=== PATIENT | female | born 1970 | race Hispanic/Latino ===

== ENCOUNTER 2016-04-09 17:48 | Observation (INO) | payer OTHER ==
[~2016-04-09] VITALS: Ht 165.1 cm; Wt 89.9 kg
[~2016-04-09 17:48] MED LIST: CHOL100043 PO; DICY10CA13 PO; HSC.125T PO; LEVO75TA4 PO
[2016-04-09 18:05] VITALS: BP 106/65; PULSE 72; RESP 17; O2SAT 99
--- NOTE | 2016-04-09 18:05 | ED.REPORT ---
HPI-Chest Pain 40 and Over Date of Service Apr 09, 2016 ED Provider: Jeffery Giraldo MD History of Present Illness: Sent from urgent care A 45 year old female with no history of cardiac disease, hypertension, high cholesterol, or diabetes is referred to the ED from Urgent Care due to midsternal chest pain and a concerning EKG. The pt presented to Urgent Care with chest pain ranging from 1/10 to 5/10 that radiated to her shoulder and neck. The chest pain began while the pt was at work at 08:00 this morning and has been intermittent since. She returned home, but became concerned when the pain began continuously radiating into her left arm and neck. She also began experiencing shortness of breath, nausea, and diaphoresis. The pain is worsened by deep breathing and movement of her arm, and relieved by laying on her side. In the ED, the pt is complaining of a headache and nausea. Nitro relieved her chest pain somewhat. She denies fever, cough, or the occurrence of any symptoms before today. Nursing Notes Stated Complaint: CHEST PAIN Nursing Notes Reviewed: Yes ([facility] not reconciled) Allergies: Coded Allergies: No Known Drug Allergies (Verified Allergy, Unknown, 04/09/16) Scheduled Cholecalciferol (Vitamin D3) (Vitamin D) 1,000 Unit Tablet 1,000 UNIT PO DAILY Hyoscyamine Sulfate (Levsin) 0.125 Mg Tab 0.125 MG PO QID Levothyroxine (Levothyroxine) 75 Mcg Tablet 75 MCG PO DAILY Scheduled PRN Dicyclomine (Dicyclomine) 10 Mg Capsule 10 MG PO QID PRN PRN For GI Cramps General Time Seen by MD: 18:03 Chief Complaint Chest pain Hx Obtained From: Patient, EMS Arrived By: Ambulance Sudden in Onset?: Yes Onset Occurred: 9 - 12 hours ago Symptom Duration: Intermittent Recent Healthcare: No recent doctor visit, No recent hospitalization Similar Sx Previous: No Past Medical History Past Medical History thyroid disease Denies: Congestive heart failure, Coronary artery disease, Diabetes mellitus, Hyperlipidemia, Hypertension, Transient ischemic attack Reports: Thyroid disease Past Surgical History R hand surgery L ear surgery Reports: Cholecystectomy Smoking History Never Smoker Social History Other Social History: Good social support Ambulatory Status Independent Review of Systems Constitutional: Denies: Chills, Fever Respiratory: Reports: Pleuritic pain, Shortness of breath, Denies: Non-productive cough Cardiovascular: Reports: Chest pain (midsternal) GI: Reports: Nausea, Denies: Abdominal pain, Vomiting Musculoskeletal: Reports: Extremity pain, Neck pain, Denies: Back pain Skin: Reports Diaphoresis, Denies Rash Neurologic: Reports: Headache Complete sys rev & neg: except as marked. Physical Exam Initial Vital Signs Vital Signs (First) Date Time Temp Pulse Resp B/P Pulse Ox O2 Delivery O2 Flow Rate FiO2 04/09/16 18:05 72 17 106/65 99 Room Air Initial VS: Reviewed, Unavailable (none on chart, ordered) General/Constitutional: Awake, Alert Respiratory / Chest: Atraumatic, Breath sounds NL, Breath sounds = bilat, No respiratory distress Cardiovascular: Heart rate NL, Regular rhythm, Heart sounds NL Abdomen: Atraumatic, Soft, Non-tender Neck: Atraumatic, Supple, Full range of motion Back: Atraumatic, Full range of motion Lower Extremity / Pelvis / MS: Atraumatic, Full range of motion Skin: Atraumatic, Color NL, No rash, Warm, Dry Neurologic: Oriented X3, Speech NL, No motor deficits, No sensory deficits Psychiatric: Affect NL, Mood NL Head / Eyes: Atraumatic, Normocephalic, PERRL, EOMI ENT: Atraumatic, Airway patent, Mucous membranes moist Upper Extremity / MS: Atraumatic, Full range of motion Interpretation & Diagnostics Lab Results Interpretation Result Diagram: 04/09/16180604/09/161806 Test 04/09/16 18:07 White Blood Count 9.3th/mm3 (3.8-10.1) Red Blood Count 4.47mil/mm3 (3.90-5.20) Hemoglobin 13.7g/dL (12.0-15.6) Hematocrit 40.0% (35.0-46.0) Mean Corpuscular Volume 89.5fL (81-100) Mean Corpuscular Hemoglobin 30.6pg (27.0-35.0) Mean Corpuscular Hemoglobin Concent 34.3% (32.0-37.0) Red Cell Distribution Width 11.8% (12.3-15.4) Platelet Count 315bil/L (150-400) Neutrophils (%) (Auto) 67.3% (40-74) Lymphocytes (%) (Auto) 24.9% (14-46) Monocytes (%) (Auto) 6.5% (4-12) Eosinophils (%) (Auto) 1.1% (0-5) Basophils (%) (Auto) 0.1% (0-3) D-Dimer < 0.5mg/L (<0.50) Sodium Level 140mEq/L (134-144) Potassium Level 3.7mEq/L (3.5-5.2) Chloride Level 102mEq/L (97-108) Carbon Dioxide Level 26mmol/L (18-29) Blood Urea Nitrogen 17mg/dL (6-24) Creatinine 0.45mg/dL (0.57-1.00) Estimat Glomerular Filtration Rate 215mL/min (>59) Glucose Level 98mg/dL (60-99) Calcium Level 9.1mg/dL (8.5-10.1) Magnesium Level 2.1mg/dL (1.6-2.6) Total Bilirubin 0.5mg/dL (0.0-1.2) Aspartate Amino Transf (AST/SGOT) 16U/L (0-50) Alanine Aminotransferase (ALT/SGPT) 13U/L (0-32) Alkaline Phosphatase 54U/L (25-150) Troponin T < 0.010ug/L (0.0-0.011) Total Protein 7.4g/dL (6.4-8.4) Albumin 4.3g/dL (3.4-5.0) Lab Results Interpretation: CBC normal CMP normal troponin #1 negative D-dimer negative ECG Interpretation ECG Interpretation: normal sinus rhythm with a rate of 76 left axis deviation nonspecific T wave inversion anteriorly, no prior EKG available for comparison (Other than comparison with EKG earlier today at urgent care - for which there is no interval change) Time: 18:07 Interpreted by: ED physician X-Ray Chest Interpretation Chest Xray Interpretation: IMPRESSION: No acute cardiopulmonary disease. Dictated by: Justino Del Angel M.D. on 04/09/2016 at 18:23 Approved by: Justino Del Angel M.D. on 04/09/2016 at 18:23 Interpretation / Wet Read by: Interpret - Radiologist Re-Eval/Medical Decision Med Decision/Clinical Course This is a 45-year-old female sent over from urgent care with chest discomfort. This is a patient without prior cardiopulmonary history he developed left-sided chest discomfort radiating the shoulder and neck has been waxing and waning throughout the day and associated diaphoresis, shortness of breath and some mild nausea. There is a trace pleuritic component. Patient's been otherwise healthy. She has no clear-cut risk factors for either coronary disease or thromboembolic disease. Her vitals are normal. However EKG demonstrated T wave abnormality is anteriorly, and she has no prior EKG available for comparison. She received aspirin and nitroglycerin. The nitroglycerin gave her a headache, but resolved the chest discomfort. EKG in the emergency department confirms the T wave abnormalities, initial blood work including a d-dimer and initial troponin is negative. However with the patient having abnormal EKG with anterior T-wave inversions, components of the story that are potentially concerning, although there are components that are atypical as well, serial enzymes are warranted an observation admission to evaluate for tachycardia syndrome is indicated. Patient is updated. Case is discussed the hospitalist Source of Hx: Old records, EMS Time of Eval: 20:22 Patient Status: Condition unchanged Re-Evaluation/Progress Note: Pt rechecked, who is resting. She is informed of her radiology and lab results, as well as the need for admission. The pt understands and agrees with the plan. All questions are addressed at this time. 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 Bender, hospitalist, regarding pt's case. Dr. Bender agrees with the evaluation and agrees to admit the pt. Differential Diagnosis: Positive: Chest pain, acute, Negative: Congestive heart failure, Esophageal rupture, Esophagitis, Gun shot wound chest, Hypertroph cardiomyopathy, Pneumomediastinum, Pneumonia, Pneumothorax, Pulmonary edema, Pulmonary embolism, Rib fracture, Stab wound chest, Stable angina Counseled Regarding: Diagnosis, Lab results, Need for admission Discharge & Departure Primary Impression: Chest pain Chest pain type: unspecified Qualified Code: R07.9 - Chest pain, unspecified Additional Impression: Abnormal EKG Referrals: Raquel Collier MD (PCP) Jeffery Giraldo MD Apr 09, 2016 18:05 EZEQUIEL BLANCHARD Apr 09, 2016 18:37
[2016-04-09 18:11] LABS: BASOPHILS % (AUTO) 0.1 % (0-3); EOSINOPHILS % (AUTO) 1.1 % (0-5); MONOCYTES % (AUTO) 6.5 % (4-12); Mean Corpuscular Hemoglobin 30.6 pg (27.0-35.0); Mean Corpuscular Volume 89.5 fL (81-100); NEUTROPHILS % (AUTO) 67.3 % (40-74); Platelet Count 315 bil/L (150-400)
--- NOTE | 2016-04-09 18:26 | DRSVH ---
PROCEDURE: X-RAY CHEST ONE VIEW, PORTABLE ([id number]) INDICATIONS: 45 year-old female with chest pain. TECHNIQUE: One view of the chest was acquired. COMPARISON: None. FINDINGS: Surgical changes and devices: None. Lungs and pleura: No pleural effusions or pneumothorax. Lungs are clear. Mediastinum: Mediastinal contours appear normal. Heart size is normal. Bones and chest wall: No suspicious bony lesions. Overlying soft tissues appear unremarkable. IMPRESSION: No acute cardiopulmonary disease. Dictated by: Justino Del Angel M.D. on 04/09/2016 at 18:23 Approved by: Justino Del Angel M.D. on 04/09/2016 at 18:23
[2016-04-09 18:43] LABS: Magnesium 2.1 mg/dL (1.6-2.6)
[2016-04-09 18:46] VITALS: BP 103/51; PULSE 70; RESP 16; O2SAT 100
[2016-04-09 18:56] LABS: TROPONIN T < 0.010 ug/L (0.0-0.011)
[2016-04-09] MEDS ORDERED: Ondansetron 2 mg/mL 2 mL Inj IVPUSH PRN ×2 (21:15→21:30)
[2016-04-09] MEDS ORDERED: Alum-Mag Hydrox-Simeth 30 mL Suspension PO PRN ×2 (21:15→21:30)
[2016-04-09] MEDS ORDERED: Polyethylene Glycol (PEG) 17 Gm Powder PO PRN (21:30)
[2016-04-09 21:46] VITALS: BP 112/68; PULSE 72; RESP 20; O2SAT 100
[2016-04-09 22:35] LABS: APPEARANCE,URINE CLEAR (CLEAR,HAZY); COLOR,URINE STRAW (YELLOW); OCCULT BLOOD,URINE NEGATIVE (NEGATIVE); UROBILINOGEN,URINE NORMAL (NORMAL)
[2016-04-09 23:21] VITALS: BP 112/70; PULSE 72; RESP 18; O2SAT 98
--- NOTE | 2016-04-09 23:33 | PCM.HPMED ---
Subjective Date of Service Apr 09, 2016 Primary Provider: Admitting Physician: Ruth Bender MD Primary Care Physician: Karli Thakkar Attending Physician: Ruth Bender MD Admit Status: From the Emergency Department, 23-Hour Observation, [facility] Telemetry Chief Complaint: Chest pain History of Present Illness: This is a 45-year-old female who has no history of heart disease who presents with over the past day pain in the left side of her chest with radiation up to her shoulder and down her left arm. She notes it may last for 30 minutes at a time. Not worse with movement. She does have some nausea diaphoresis and shortness of breath with it. She was given nitroglycerin and did seem to help with the discomfort. Currently she is pain free. She has no family history of heart disease. Her evaluation here included an EKG showed normal sinus rhythm at a rate of 76 with left axis deviation. She did have some nonspecific T-wave changes in the anterior leads. Chest x-ray revealed no acute cardiopulmonary disease. Her troponin was less than 0.010. She did have a d-dimer which was less than 0.5. She denies any alteration in bowel movements and denies any abdominal pain. She denies any vomiting. She denies any fevers or chills. She denies cough or wheezing. Review of Systems: All other review of systems are reviewed and are negative except for as in history of present illness. Allergies Coded Allergies: No Known Drug Allergies (Verified Allergy, Unknown, 04/09/16) Home Medications Scheduled Cholecalciferol (Vitamin D3) (Vitamin D) 1,000 Unit Tablet 1,000 UNIT PO DAILY Hyoscyamine Sulfate (Levsin) 0.125 Mg Tab 0.125 MG PO QID Levothyroxine (Levothyroxine) 75 Mcg Tablet 75 MCG PO DAILY Scheduled PRN Dicyclomine (Dicyclomine) 10 Mg Capsule 10 MG PO QID PRN PRN For GI Cramps PMH Hypothyroidism History of irritable bowel syndrome Surgical History R hand surgery L ear surgery Reports: Cholecystectomy Family History No history of cardiovascular disease or diabetes Social History Hx Alcohol Use: No Hx Substance Use: No Smoking Status: Never Smoker Living Arrangement: with Family Exam Vital Signs Vital Sign - Last Date Time Temp Pulse Resp B/P Pulse Ox O2 Delivery O2 Flow Rate FiO2 04/09/16 21:46 36.2 72 20 112/68 100 04/09/16 18:46 Room Air Exam Constitutional: Middle-aged woman in no acute distress Head: Normocephalic atraumatic Eyes: PERRLA DC EOMI Mouth: No lesions Neck: Carotids 2+ over 4 without bruits bilaterally Chest: Clear to auscultation, no tenderness palpation over the chest wall Cor: Regular rate and rhythm S1-S2 without murmur Abdomen: Soft nontender bowel sounds present Extremities: No pedal edema Skin: No rashes Psych: Mood and affect are appropriate Neuro: Alert and oriented 3, motor and sensory are intact bilaterally Lab and Diagnostics Labs Laboratory Tests 72 Hours Test 04/09/16 18:07 04/09/16 21:59 04/09/16 22:35 White Blood Count 9.3th/mm3 (3.8-10.1) Red Blood Count 4.47mil/mm3 (3.90-5.20) Hemoglobin 13.7g/dL (12.0-15.6) Hematocrit 40.0% (35.0-46.0) Mean Corpuscular Volume 89.5fL (81-100) Mean Corpuscular Hemoglobin 30.6pg (27.0-35.0) Mean Corpuscular Hemoglobin Concent 34.3% (32.0-37.0) Red Cell Distribution Width 11.8% (12.3-15.4) Platelet Count 315bil/L (150-400) Neutrophils (%) (Auto) 67.3% (40-74) Lymphocytes (%) (Auto) 24.9% (14-46) Monocytes (%) (Auto) 6.5% (4-12) Eosinophils (%) (Auto) 1.1% (0-5) Basophils (%) (Auto) 0.1% (0-3) D-Dimer < 0.5mg/L (<0.50) Sodium Level 140mEq/L (134-144) Potassium Level 3.7mEq/L (3.5-5.2) Chloride Level 102mEq/L (97-108) Carbon Dioxide Level 26mmol/L (18-29) Blood Urea Nitrogen 17mg/dL (6-24) Creatinine 0.45mg/dL (0.57-1.00) Estimat Glomerular Filtration Rate 215mL/min (>59) Glucose Level 98mg/dL (60-99) Calcium Level 9.1mg/dL (8.5-10.1) Magnesium Level 2.1mg/dL (1.6-2.6) Total Bilirubin 0.5mg/dL (0.0-1.2) Aspartate Amino Transf (AST/SGOT) 16U/L (0-50) Alanine Aminotransferase (ALT/SGPT) 13U/L (0-32) Alkaline Phosphatase 54U/L (25-150) Troponin T < 0.010ug/L (0.0-0.011) 0.010ug/L (0.0-0.011) Total Protein 7.4g/dL (6.4-8.4) Albumin 4.3g/dL (3.4-5.0) HCG Beta Subunit 0.500mIU/mL Urine Color Straw (YELLOW) Urine Appearance Clear (CLEAR,HAZY) Urine pH 7.0 (5.0-8.0) Urine Specific [place] 1.010 (1.003-1.035) Urine Protein Negativemg/dL (NEG,TRACE) Urine Glucose (UA) Negativemg/dL (NEGATIVE) Urine Ketones Negativemg/dL (NEGATIVE) Urine Occult Blood Negative (NEGATIVE) Urine Nitrite Negative (NEGATIVE) Urine Bilirubin Negative (NEGATIVE) Urine Urobilinogen Normalmg/dL (NORMAL) Urine Leukocyte Esterase Negative (NEGATIVE) Urine RBC 0-2/hpf (0-2) Urine WBC 0-5/hpf (0-5) Urine Epithelial Cells Few/hpf (NONE-MOD) Urine Crystals None seen (NONE SEEN) Urine Bacteria None/hpf (NONE-FEW) Urine Hyaline Casts None/lpf (NONE) Urine Granular Casts None seen (NONE SEEN) Urine Waxy Casts None seen (NONE SEEN) Urine Red Blood Cell Casts None seen (NONE SEEN) Urine White Blood Cell Casts None seen (NONE SEEN) Urine Mucus None seen (None Seen) Urine Trichomonas None seen (NONE SEEN) Urine Yeast None (NONE SEEN) Urine Culture Reflexed Not indicated Result Diagram: 04/09/16180604/09/161806 X-Rays, CTs and MRIs Patient Name: ANATOLIY ANTON MR#: [id number] Location: [facility] [place] Ordering Phys: Jeffery Giraldo MD Date of Service: 04/09/16 1803 PROCEDURE: X-RAY CHEST ONE VIEW, PORTABLE ([id number]) INDICATIONS: 45 year-old female with chest pain. TECHNIQUE: One view of the chest was acquired. COMPARISON: None. FINDINGS: Surgical changes and devices: None. Lungs and pleura: No pleural effusions or pneumothorax. Lungs are clear. Mediastinum: Mediastinal contours appear normal. Heart size is normal. Bones and chest wall: No suspicious bony lesions. Overlying soft tissues appear unremarkable. IMPRESSION: No acute cardiopulmonary disease. Dictated by: Justino Del Angel M.D. on 04/09/2016 at 18:23 Approved by: Justino Del Angel M.D. on 04/09/2016 at 18:23 12-lead ECG Sinus at rate of 76 left axis deviation and T-wave nonspecific changes in V1 through V3 which are slightly inverted. No old EKG for comparison. Assessment & Plan # Chest pain, acute, present on admission Check serial troponins Schedule nuclear pharmacological stress test Sublingual nitroglycerin when necessary Repeat EKG in a.m. Check lipids # Hypothyroidism, chronic, present on admission Continue with current medication regimen # DVT prophylaxis Placed on subcutaneous heparin prophylactic # CODE STATUS Patient is full code Pain Evaluation: Adequate Pain Control GI Prophylaxis: H2 philip VTE Prophylaxis: Sub-Q Heparin (Unfractionated) Resuscitation Status: CPR: Attempt Resuscitation Time spent 60 minutes Ruth Bender MD Apr 09, 2016 23:32
[2016-04-10] VITALS (7 sets, daily range): BP systolic 87–122; BP diastolic 57–81; PULSE 68–119; RESP 16–18; O2SAT 98
[2016-04-10] MEDS ORDERED: ROB500 PO (00:29)
[2016-04-10] MEDS: Heparin 5,000 Unit/mL Inj SUBQ SCH ×4 (00:44→23:58)
[2016-04-10] MEDS: Sodium Chloride LOK Flush 10 mL Syringe IVFLUSH SCH ×3 (00:46→18:31)
--- NOTE | 2016-04-10 00:48 | NUR ---
ADMIT: Pt. arrived to [facility] from the ED via stretcher. States she started having chest pain and difficulty breathing this am at about 0800 while at work. Went to the walk in clinic, they did an EKG which turned out to be abnormal, they sent her to the ED and was admitted for that reason. Chest pain is resolved, denies SOB. On arrival to [facility] Pt. was able to ambulate from the stretcher to her bed without difficulty. Ambulated to the bathroom independently for voiding. Pt. is Monegasque speaking only. She is A & O, all vss. Admission completed per protocol.
[2016-04-10 11:29] LABS: BASOPHILS % (AUTO) 0.4 % (0-3); EOSINOPHILS % (AUTO) 1.3 % (0-5); Mean Corpuscular Hemoglobin 30.4 pg (27.0-35.0); Mean Corpuscular Volume 88.4 fL (81-100); NEUTROPHILS % (AUTO) 58.2 % (40-74); Platelet Count 278 bil/L (150-400)
[2016-04-10 11:59] LABS: Magnesium 2.1 mg/dL (1.6-2.6)
--- NOTE | 2016-04-10 18:33 | DRSVH ---
PROCEDURE: ONE DAY TREADMILL STRESS TEST INDICATIONS: Ms. Pichardo is a 45-year-old female presenting to [facility] with s ymptoms of chest discomfort and some nonspecific EKG changes. Nuclear cardiac stress study was perfo rmed to exclude underlying ischemic heart disease. COMPARISON: None. STRESS TEST: This patient was given a regular exercise Yung protocol treadmill stress test. She wa s able to achieve a total exercise time of 7 minutes and 39 seconds, stopping due to symptoms of dysp renetta and fatigue without chest pain or diagnostic EKG changes of ischemia. Baseline EKG is notable fo r some generalized low voltage throughout with nonspecific T-wave inversion and T-wave flattening dif fusely. PROCEDURE: This patient received 11.9 mCi of technetium-99 tetrofosmin for the resting portion of th e examination. She subsequently received 30.3 mCi for the stress portion of the examination at peak exercise. FINDINGS: Raw Data: Raw data images demonstrate overall good image quality. No significant artifact or interf erence identified. Quantitative Gated SPECT Imaging: Gated images show a normal-size ventricle with an end diastolic vo lume of 62 cc. Overall ejection fraction estimated at 80%. No regional wall motion abnormalities se en. Quantitative Perfusion SPECT Imaging: Myocardial perfusion imaging shows a normal distribution of ra dioisotope throughout the myocardium both at rest and with stress. No perfusion abnormalities are id entified that would suggest ischemia or scar. IMPRESSION: Normal nuclear cardiac stress study: A. Near-normal exercise capacity with symptoms of dyspnea but without chest pain or electrocardiogra phic changes of ischemia. B. Normal-size left ventricle and normal left ventricular contractility. C. Normal myocardial perfusion imaging with no evidence of ischemia or scar. DISCUSSION: Nuclear cardiac stress study suggests a low likelihood for the presence of significant u nderlying obstructive coronary artery disease. Dictated by: Yunier Segura M.D. on 04/10/2016 at 16:56 Transcribed by: KENDY on 04/10/2016 at 21:32 Approved by: Yunier Segura M.D. on 04/28/2016 at 12:17
--- NOTE | 2016-04-10 18:35 | NUR ---
STRESS TEST P-Patient underwent stress test today at 1200, results have not been given at this time. I- Extension Service Agent called and patient aware of situation and pending test results. E-Patient VSS, denies pain, nausea, and shortness of breath. Patient eating 100% of dinner.
--- NOTE | 2016-04-10 23:07 | PCM.PNMED ---
Subjective Date of Service Apr 10, 2016 Subjective Patient has no complaints of chest pain at present time. She has no nausea, no vomiting, or diaphoresis. Exam Vital Signs Vital Sign - Last Date Time Temp Pulse Resp B/P Pulse Ox O2 Delivery O2 Flow Rate FiO2 04/10/16 18:47 36.6 68 18 122/81 98 Room Air Intake and Output 04/09/16 04/09/16 04/10/16 Cumulative From/Thru 15:00 23:00 07:00 04/09/16 21:47 - 04/10/16 06:15 Intake Total 200 ml 200 ml Output Total 300 ml 350 ml 650 ml Balance -300 ml -150 ml -450 ml Intake Oral 200 ml 200 ml Output Urine Total 300 ml 350 ml 650 ml # Voids 1 1 # Bowel Movements 0 0 Exam General: Patient is in no apparent distress lying supine flat in bed. HEENT: Head is atraumatic normocephalic. Eyes: Pupils are equally round and reactive to light and accommodation. Extraocular muscles are intact. Sclera are white anicteric. Subconjunctival mucosa are pink. Ears and nose are unremarkable. Oropharynx: There is no mucosal lesions, there is no thrush, there is no pharyngitis. Neck: Is supple, there is no nodes, or masses, or tenderness. Chest: Is clear to auscultation and percussion. There are no rales, rhonchi, wheezes or rubs. There is no chest wall tenderness. Heart: Rate, rhythm is regular. There is no murmur, rub or gallop. Abdomen: Good bowel sounds are present. Abdomen is soft, nontender, no organomegaly or masses were appreciated. Extremities: Are symmetrical and well perfused. There is no edema, there is no cellulitis, no rash. Neurologic: There are no focal neurological deficits. Cranial nerves II through XII are intact. There are no sensory or motor deficits. Psychiatric: Patients mood is calm and shows no sign of agitation. Genital: Deferred Rectal: Deferred Lab and Diagnostics Result Diagram: 04/10/16 1120 04/10/16 1120 X-Rays, CTs and MRIs Patient Name: ANATOLIY ANTON MR#: [id number] Location: [facility] Ordering Phys: Jeffery Giraldo MD Date of Service: 04/09/16 5763 PROCEDURE: X-RAY CHEST ONE VIEW, PORTABLE ([id number]) INDICATIONS: 45 year-old female with chest pain. TECHNIQUE: One view of the chest was acquired. COMPARISON: None. FINDINGS: Surgical changes and devices: None. Lungs and pleura: No pleural effusions or pneumothorax. Lungs are clear. Mediastinum: Mediastinal contours appear normal. Heart size is normal. Bones and chest wall: No suspicious bony lesions. Overlying soft tissues appear unremarkable. IMPRESSION: No acute cardiopulmonary disease. Dictated by: Justino Del Angel M.D. on 04/09/2016 at 18:23 Approved by: Justino Del Angel M.D. on 04/09/2016 at 18:23 12-lead ECG Sinus at rate of 76 left axis deviation and T-wave nonspecific changes in V1 through V3 which are slightly inverted. No old EKG for comparison. Assessment & Plan This is a 45-year-old female who has no history of heart disease who presents with over the past day pain in the left side of her chest with radiation up to her shoulder and down her left arm. She notes it may last for 30 minutes at a time. Not worse with movement. She does have some nausea diaphoresis and shortness of breath with it. She was given nitroglycerin and did seem to help with the discomfort. Currently she is pain free. She has no family history of heart disease. Her evaluation here included an EKG showed normal sinus rhythm at a rate of 76 with left axis deviation. She did have some nonspecific T-wave changes in the anterior leads. Chest x-ray revealed no acute cardiopulmonary disease. Her troponin was less than 0.010. She did have a d-dimer which was less than 0.5. She denies any alteration in bowel movements and denies any abdominal pain. She denies any vomiting. She denies any fevers or chills. She denies cough or wheezing. # Chest pain, acute, present on admission -Check serial troponins -Schedule nuclear pharmacological stress test or exercise stress echo as patient is only 45 years old -Sublingual nitroglycerin when necessary -Repeat EKG in a.m. -Check lipids # Hypothyroidism, chronic, present on admission -Continue with current medication regimen # DVT prophylaxis -Placed on subcutaneous heparin prophylactic # CODE STATUS Patient is full code Pain Evaluation: Adequate Pain Control GI Prophylaxis: Proton Pump Inhibitor VTE Prophylaxis: Sub-Q Heparin (Unfractionated) Resuscitation Status: CPR: Attempt Resuscitation Shawn Gabriel MD Apr 10, 2016 23:07
[2016-04-11] MEDS: Sodium Chloride LOK Flush 10 mL Syringe IVFLUSH SCH ×2 (00:30→08:30)
--- NOTE | 2016-04-11 02:27 | NUR ---
Headache Patient states she has a headache. Tylenol given 650mg. Patient accidently removed her peripheral IV last shift. Physician notified. Physician recommended holding off starting new IV until there is a need. No IV fluids ordered at this time.
[2016-04-11 06:34] LABS: BASOPHILS % (AUTO) 0.2 % (0-3); EOSINOPHILS % (AUTO) 0.8 % (0-5); MONOCYTES % (AUTO) 7.7 % (4-12); Mean Corpuscular Hemoglobin 30.3 pg (27.0-35.0); Mean Corpuscular Volume 88.1 fL (81-100); NEUTROPHILS % (AUTO) 53.2 % (40-74); Platelet Count 293 bil/L (150-400)
[2016-04-11 07:21] LABS: Magnesium 2.1 mg/dL (1.6-2.6); Phosphorus 3.9 mg/dL (2.5-4.9); TROPONIN T 0.01 ug/L (0.0-0.011)
[2016-04-11] MEDS ORDERED: Pantoprazole 40 mg ER24 Tablet PO SCH (07:30)
[2016-04-11] MEDS: Heparin 5,000 Unit/mL Inj SUBQ SCH (08:30)
[2016-04-11 10:12] VITALS: PULSE 77
--- NOTE | 2016-04-11 10:21 | NUR ---
Social Work Screening/Discharge D: EMR reviewed. Pt is a 45Y old female Marika for Chest Pain and Abnormal EKG. Insurance is [employer]. PCP is Dr. Thakkar. Per EMR, Pt lives at home with Family in [place] where she remains independent. Pt is medically stable and discharging home today via POV, no discharge needs identified. A: Pt who is independent at baseline P: Pt is medically stable and discharging home today via POV, no discharge needs identified. DIANE Sky
--- NOTE | 2016-04-11 10:56 | NUR ---
I am recording these input/output numbers as handed to me by ELINA leblanc CNA dated 04/11/16 at 7:00 am Addendum: 04/11/16 at 1058 by RUBY ARCHER CNA Amended: Links added. Addendum: 04/11/16 at 1109 by RUBY ARCHER CNA and requested by my supply chain procurement manager
--- NOTE | 2016-04-11 11:45 | NUR ---
Discharge Pt DC home with via private vehicle. All cardiac tests including ECHO this morning were negative and results explained with silver miner blasting at bedside, all questions answered. Per Dr. Beauchamp, expected cause of chest pain was related to GERD and pt was educated by him with the silver miner blasting and RN witness on use of over the counter medications to help with this. Pt understands to follow up with PCP in 1-2 weeks and feels comfortable leaving at this time.
--- NOTE | 2016-04-11 12:16 | PCM.DIMED ---
Discharge Instructions Date of Service Apr 11, 2016 Dates of Hospitalization Apr 09, 2016 at 21:34 Discharge Diagnosis Discharge Diagnosis chest pain, nonanginal Diet No restrictions Activity No restrictions Call your provider Other Patient Instructions You were hospitalized with chest pain. Further work-ups including laboratory test, EKG, stress test indicated that you don't have evidence of heart attack. Instruction> please follow up with your primary doctor in 2weeks for follow up Follow-up Provider: NORA SANFORD Follow-up with PCP in: 2 weeks Benjamin Beauchamp MD Apr 11, 2016 12:16
--- NOTE | 2016-04-11 13:00 | DRSVH ---
[facility] [address] [place] [address] Echocardiogram Report Name: NAATOLIY ANTON Date: 017 Height: 65 in Hospital Exam Location: [facility] Weight: 198 lb Gender: Female BSA: 2.0 m2 : 1970 Age: 45 yrs BP: 122/81 mmHg Reason For Study: Chest pain Ordering Physician: Performed By: Lorie Anna Interpretation Summary The left ventricle is normal in size, wall thickness, and systolic function without any focal wall motion abnormalities. The ejection fraction is estimated to be 60-65%. Assessment of diastolic parameters indicates a relaxation abnormality of the left ventricle, consistent with normal filling pressures. The right ventricle is normal in size, thickness and function. The right ventricular systolic pressure is estimated at 26 mmHg assuming a right atrial pressure of 3 mm Hg. There is no significant valvular heart disease. The aortic root is normal size. Procedure: A two-dimensional transthoracic echocardiogram with color flow and Doppler was performed. The study quality was technically adequate. There is no prior echocardiogram noted for this patient. The patient was in normal sinus rhythm during the exam. Left Ventricle: The left ventricle is normal in size, wall thickness, and systolic function without any focal wall motion abnormalities. The ejection fraction is estimated to be 60-65%. Assessment of diastolic parameters indicates a relaxation abnormality of the left ventricle, consistent with normal filling pressures. Right Ventricle: The right ventricle is normal in size, thickness and function. Atria: The left atrial size is normal. Right atrial size is normal. The interatrial septum is intact with no evidence for an atrial septal defect. Mitral Valve: The mitral valve is normal in structure and function. There is trace mitral regurgitation. Aortic Valve: The aortic valve is trileaflet. The aortic valve opens well. No aortic regurgitation is present. Tricuspid Valve: The tricuspid valve is normal in structure and function. There is trace tricuspid regurgitation. The right ventricular systolic pressure is estimated at 26 mmHg assuming a right atrial pressure of 3 mm Hg. Pulmonic Valve: The pulmonic valve is normal in structure and function. There is no pulmonic valvular regurgitation. There is no significant valvular heart disease. Great Vessels: The aortic root is normal size. The dimensions of the ascending aorta are normal. The IVC is of normal diameter and collapses greater than 50% with a sniff. This suggests a low right atrial pressure of 3 mm Hg. Pericardium/ Pleura There is no pericardial effusion. There is no pleural effusion. MMode/2D Measurements & Calculations LVIDd: 4.2 cm LA dimension: 3.7 cm RA long axis Ao root diam: 3.0 cm LVIDs: 2.5 cm Aortic Jxn: 2.5 cm FS: 39.9 % LA A2 area: 18.8 cm RA area asc Aorta Diam IVSd: 0.91 cm LA A4 area: 17.8 cm LVPWd: 0.75 cm LA length (vol) : 14.9 cm Ao Arch Diam RA vol (Proximal trans.) LA vol: 54.5 ml : 34.4 ml LA vol index RA : 17.5 mm2 : 27.7 ml/m2 LV bone. diameter/BSALV sys. diameter/BSA (cm/m^2): 2.1 (cm/m^2): 1.3 Doppler Measurements & Calculations Ao V2 max MV E max rex MV E/A: 0.69 TR max rex : 139.7 cm/sec : 56.5 cm/sec Med Peak E' Rex : 239.2 cm/sec Ao max PG MV A max rex TR max PG : 7.8 mmHg : 82.1 cm/sec E/E' med: 6.7 : 22.9 mmHg Ao mean PG MV P1/2t: 56.1 msec Lat Peak E' Rex PA V2 max : 4.1 mmHg : 75.4 cm/sec E/E' lat: 6.2 PA mean PG : 1.2 mmHg MV dec time MV P1/2t max rex Ao V2 mean PA V2 mean : 0.28 sec : 93.6 cm/sec : 50.3 cm/sec Ao V2 VTI: 29.6 cm MVA(P1/2t): 3.9 cm2 Reading Physician:PM
--- NOTE | 2016-04-12 17:41 | PCM.DC.MED ---
Discharge Summary Date of Service Apr 11, 2016 Dates of Hospitalization Date of Hospital Admission Apr 09, 2016 at 21:34 Date of Discharge: Apr 11, 2016 Providers: Admitting Physician: Ruth Bender MD Primary Care Physician: Nora Thakkar Attending Physician: Ruth Bender MD Diagnosis at Time of Discharge Diagnosis at Time of Discharge chest pain, nonanginal hypothyroidism Procedures XRay, CTs & MRIs PROCEDURE: X-RAY CHEST ONE VIEW, PORTABLE ([id number]) INDICATIONS: 45 year-old female with chest pain. TECHNIQUE: One view of the chest was acquired. COMPARISON: None. FINDINGS: Surgical changes and devices: None. Lungs and pleura: No pleural effusions or pneumothorax. Lungs are clear. Mediastinum: Mediastinal contours appear normal. Heart size is normal. Bones and chest wall: No suspicious bony lesions. Overlying soft tissues appear unremarkable. IMPRESSION: No acute cardiopulmonary disease. Dictated by: Justino Del Angel M.D. on 04/09/2016 at 18:23 Approved by: Justino Del Angel M.D. on 04/09/2016 at 18:23 ECG 12 Lead Sinus at rate of 76 left axis deviation and T-wave nonspecific changes in V1 through V3 which are slightly inverted. No old EKG for comparison. Cardiac Echo Impression Echocardiogram Report Name: ANATOLIY ANTON Date: 017 Height: 65 in Hospital Exam Location: [facility] Weight: 198 lb Gender: Female BSA: 2.0 m2 : 1970 Age: 45 yrs BP: 122/81 mmHg Reason For Study: Chest pain Ordering Physician: Performed By: Lorie Anna Interpretation Summary The left ventricle is normal in size, wall thickness, and systolic function without any focal wall motion abnormalities. The ejection fraction is estimated to be 60-65%. Assessment of diastolic parameters indicates a relaxation abnormality of the left ventricle, consistent with normal filling pressures. The right ventricle is normal in size, thickness and function. The right ventricular systolic pressure is estimated at 26 mmHg assuming a right atrial pressure of 3 mm Hg. There is no significant valvular heart disease. The aortic root is normal size. Other Diagnostics PROCEDURE: ONE DAY TREADMILL STRESS TEST INDICATIONS: Ms. Anton is a 45-year-old female presenting to [facility] with symptoms of chest discomfort and some nonspecific EKG changes. Nuclear cardiac stress study was performed to exclude underlying ischemic heart disease. COMPARISON: None. STRESS TEST: This patient was given a regular exercise Yung protocol treadmill stress test. She was able to achieve a total exercise time of 7 minutes and 39 seconds, stopping due to symptoms of dyspnea and fatigue without chest pain or diagnostic EKG changes of ischemia. Baseline EKG is notable for some generalized low voltage throughout with nonspecific T-wave inversion and T- wave flattening diffusely. PROCEDURE: This patient received 11.9 mCi of technetium-99 tetrofosmin for the resting portion of the examination. She subsequently received 30.3 mCi for the stress portion of the examination at peak exercise. FINDINGS: Raw Data: Raw data images demonstrate overall good image quality. No significant artifact or interference identified. Quantitative Gated SPECT Imaging: Gated images show a normal-size ventricle with an end diastolic volume of 62 cc. Overall ejection fraction estimated at 80%. No regional wall motion abnormalities seen. Quantitative Perfusion SPECT Imaging: Myocardial perfusion imaging shows a normal distribution of radioisotope throughout the myocardium both at rest and with stress. No perfusion abnormalities are identified that would suggest ischemia or scar. IMPRESSION: Normal nuclear cardiac stress study: A. Near-normal exercise capacity with symptoms of dyspnea but without chest pain or electrocardiographic changes of ischemia. B. Normal-size left ventricle and normal left ventricular contractility. C. Normal myocardial perfusion imaging with no evidence of ischemia or scar. DISCUSSION: Nuclear cardiac stress study suggests a low likelihood for the presence of significant underlying obstructive coronary artery disease. Dictated by: Yunier Segura M.D. on 04/10/2016 at 16:56 Transcribed by: KENDY on 04/10/2016 at 21:32 Brief History H&P performed by Dr. BENDER on 04/09 This is a 45-year-old female who has no history of heart disease who presents with over the past day pain in the left side of her chest with radiation up to her shoulder and down her left arm. She notes it may last for 30 minutes at a time. Not worse with movement. She does have some nausea diaphoresis and shortness of breath with it. She was given nitroglycerin and did seem to help with the discomfort. Currently she is pain free. She has no family history of heart disease. Her evaluation here included an EKG showed normal sinus rhythm at a rate of 76 with left axis deviation. She did have some nonspecific T-wave changes in the anterior leads. Chest x-ray revealed no acute cardiopulmonary disease. Her troponin was less than 0.010. She did have a d-dimer which was less than 0.5. She denies any alteration in bowel movements and denies any abdominal pain. She denies any vomiting. She denies any fevers or chills. She denies cough or wheezing. Hospital Course This is a 45-year-old female who has no history of heart disease who presents with over the past day pain in the left side of her chest with radiation up to her shoulder and down her left arm. She notes it may last for 30 minutes at a time. Not worse with movement. She does have some nausea diaphoresis and shortness of breath with it. She was given nitroglycerin and did seem to help with the discomfort. Currently she is pain free. She has no family history of heart disease. Her evaluation here included an EKG showed normal sinus rhythm at a rate of 76 with left axis deviation. She did have some nonspecific T-wave changes in the anterior leads. Chest x-ray revealed no acute cardiopulmonary disease. Her troponin was less than 0.010. She did have a d-dimer which was less than 0.5. She denies any alteration in bowel movements and denies any abdominal pain. She denies any vomiting. She denies any fevers or chills. She denies cough or wheezing. # Chest pain, acute, present on admission, serial troponins negative. one day NM treadmill stress test did not show any perfusion defect, deemed safe for d/c # Hypothyroidism, Continued with current medication regimen Exam Vital Signs (Last) Date Time Temp Pulse Resp B/P Pulse Ox O2 Delivery O2 Flow Rate FiO2 04/11/16 10:12 77 04/10/16 18:47 36.6 18 122/81 98 Room Air Exam NAD, comfortably laying down on the bed no JVD, MMM, no LAD RRR, nl s1, s2 no mrg CTAB, no w,c S,ND,NT,normoactive BS+ warm, no edema, pulses 2/2 Test 04/09/16 18:07 04/09/16 21:59 04/10/16 05:55 04/11/16 05:45 D-Dimer < 0.5mg/L (<0.50) Hemoglobin A1c 5.7% (4.8-5.6) HCG Beta Subunit 0.500mIU/mL Urine Color Straw (YELLOW) Urine Appearance Clear (CLEAR,HAZY) Urine pH 7.0 (5.0-8.0) Urine Specific [place] 1.010 (1.003-1.035) Urine Protein Negativemg/dL (NEG,TRACE) Urine Glucose (UA) Negativemg/dL (NEGATIVE) Urine Ketones Negativemg/dL (NEGATIVE) Urine Occult Blood Negative (NEGATIVE) Urine Nitrite Negative (NEGATIVE) Urine Bilirubin Negative (NEGATIVE) Urine Urobilinogen Normalmg/dL (NORMAL) Urine Leukocyte Esterase Negative (NEGATIVE) Urine RBC 0-2/hpf (0-2) Urine WBC 0-5/hpf (0-5) Urine Epithelial Cells Few/hpf (NONE-MOD) Urine Crystals None seen (NONE SEEN) Urine Bacteria None/hpf (NONE-FEW) Urine Hyaline Casts None/lpf (NONE) Urine Granular Casts None seen (NONE SEEN) Urine Waxy Casts None seen (NONE SEEN) Urine Red Blood Cell Casts None seen (NONE SEEN) Urine White Blood Cell Casts None seen (NONE SEEN) Urine Mucus None seen (None Seen) Urine Trichomonas None seen (NONE SEEN) Urine Yeast None (NONE SEEN) Urine Culture Reflexed Not indicated Triglycerides Level 232mg/dL (0-149) Cholesterol Level 160mg/dL (100-199) LDL Cholesterol, Calculated 78.600mg/dL (0-99) VLDL Cholesterol 46.400mg/dL HDL Cholesterol 35mg/dL (>39) Cholesterol/HDL Ratio 4.57 (0.0-4.4) White Blood Count 6.0th/mm3 (3.8-10.1) Red Blood Count 4.62mil/mm3 (3.90-5.20) Hemoglobin 14.0g/dL (12.0-15.6) Hematocrit 40.7% (35.0-46.0) Mean Corpuscular Volume 88.1fL (81-100) Mean Corpuscular Hemoglobin 30.3pg (27.0-35.0) Mean Corpuscular Hemoglobin Concent 34.4% (32.0-37.0) Red Cell Distribution Width 11.8% (12.3-15.4) Platelet Count 293bil/L (150-400) Neutrophils (%) (Auto) 53.2% (40-74) Lymphocytes (%) (Auto) 37.8% (14-46) Monocytes (%) (Auto) 7.7% (4-12) Eosinophils (%) (Auto) 0.8% (0-5) Basophils (%) (Auto) 0.2% (0-3) Sodium Level 141mEq/L (134-144) Potassium Level 3.9mEq/L (3.5-5.2) Chloride Level 103mEq/L (97-108) Carbon Dioxide Level 24mmol/L (18-29) Blood Urea Nitrogen 11mg/dL (6-24) Creatinine 0.49mg/dL (0.57-1.00) Estimat Glomerular Filtration Rate 195mL/min (>59) Glucose Level 113mg/dL (60-99) Calcium Level 8.8mg/dL (8.5-10.1) Phosphorus Level 3.9mg/dL (2.5-4.9) Magnesium Level 2.1mg/dL (1.6-2.6) Total Bilirubin 1.4mg/dL (0.0-1.2) Aspartate Amino Transf (AST/SGOT) 16U/L (0-50) Alanine Aminotransferase (ALT/SGPT) 16U/L (0-32) Alkaline Phosphatase 48U/L (25-150) Troponin T 0.010ug/L (0.0-0.011) Total Protein 6.7g/dL (6.4-8.4) Albumin 4.0g/dL (3.4-5.0) Discharge Medications Discharge Medications Cholecalciferol (Vitamin D3) (Vitamin D) 1,000 Unit Tablet 1,000 UNIT PO DAILY ( Reported) Hyoscyamine Sulfate (Levsin) 0.125 Mg Tab 0.125 MG PO QID (Reported) Levothyroxine (Levothyroxine) 75 Mcg Tablet 75 MCG PO DAILY (Reported) As needed Dicyclomine (Dicyclomine) 10 Mg Capsule 10 MG PO QID PRN PRN For GI Cramps ( Reported) Methocarbamol (Methocarbamol) 500 Mg Tablet 500 MG PO TID PRN PRN MUSCLE SPASMS (Reported) Followup Plan Disposition: home Discharge Diet: No restrictions Discharge Activity: No restrictions Patient Instructions You were hospitalized with chest pain. Further work-ups including laboratory test, EKG, stress test indicated that you don't have evidence of heart attack. Instruction> please follow up with your primary doctor in 2weeks for follow up Follow-up Provider: NORA THAKKAR Follow-up with PCP in: 2 weeks Time spent 65min Benjamin Beauchamp MD Apr 12, 2016 17:41
== END 2016-04-11 11:40 | disposition home or self-care (01) ==
LOC: EDUNIT# 17:48 → EDBD 17:48 → SED 17:48 → OSC 21:34
PROVIDERS: ADMIT Specialist; ATTEND Specialist
DX: R07.89 Other chest pain (principal); E03.9 Hypothyroidism, unspecified; R06.02 Shortness of breath; R11.0 Nausea; R61 Generalized hyperhidrosis
CPT/HCPCS: 36415; 71010; 78452; 80053; 80061; 81000; 82948; 83036; 83735; 84100; 84484; 84702; 85025; 85379; 93005; 93017; 99285; A9502; C8929; G0378; J1644

== ENCOUNTER → 2017-01-01 | Day surgery (SDC) | payer OTHER ==
[2017-01-01] VITALS (8 sets, daily range): BP systolic 109–126; BP diastolic 69–83; PULSE 69–90; RESP 12–18; O2SAT 96–99
[~2017-01-01] VITALS: Ht 165.1 cm; Wt 93.3 kg
[~2017-01-01] MED LIST changes: +Bupivacaine-MPF 0.5% 30 mL Inj INFILTRATE ONE; +CeFAZolin 2 Gm/50 mL D5W Duplex Bag IV ONE; +CeFAZolin Inj 2 GM in IV Premix 1 EACH IV ONE; -DICY10CA13 PO; +Dexamethasone 4 mg/mL Inj IVPUSH PRN; +Dexamethasone 4 mg/mL Inj ONE; +EPHEDrine Sulfate 50 mg/mL Inj IVPUSH PRN; -HSC.125T PO; +HYDROmorphone 1 mg/mL Inj IVPUSH PRN; +HYDROmorphone 1 mg/mL Inj ONE; +IBUP800T28 PO; +Ketamine 10 mg/mL 20 mL Inj ONE; +Lactated Ringer's 1,000 ML IV SCH; +Lactated Ringer's 500 ML IV ONE; +Lactated Ringer's 500 ML IV PRN; +MetoCLOpramide 5 mg/mL 2 mL Inj IVPUSH PRN; +Ondansetron 2 mg/mL 2 mL Inj IVPUSH PRN; +Ondansetron 2 mg/mL 2 mL Inj ONE; +Phenylephrine 10,000 mCg/mL Inj IVPUSH PRN; +Propofol 10,000 mCg/mL 20 mL Inj ONE; +RANI150T11 PO; +fentaNYL-PF 50 mCg/mL 2 mL Inj ONE
--- NOTE | 2017-01-01 09:50 | PCM.HPANE ---
Patient Data Surgeon Admitting Provider: Attending Provider:Estuardo Mclaughlin MD Primary Care Physician:Mansoor Al MD Other Provider:Monae Yeingham Anesthesia Reason for Visit Right Breast Cancer Ht/WT & BMI Height (Feet): 5 Height (Inches): 5 Weight (Kilograms): 94.6 Body Mass Index 34.00 Allergies Coded Allergies: No Known Drug Allergies (Verified Allergy, Unknown, 12/27/16) Past Anesthesia History Anesthesia History: Denies:: Abnormal Airway, Anesthesia Reactions, Difficult Intubation, Fam Anesthesia Reaction, Fam Malignant Hypertherm, Malignant Hyperthermia Diabetes History Hx Diabetes?: No MRSA MRSA: No Medications Hypertension Medication: No Home Meds Incl Beta Elmer: No Reported Medications Ibuprofen 800 Mg [id number] Mg PO TID PRN For Pain Ref 0 12/13/16 Ranitidine (Zantac)150 Mg [id number] Mg PO BID 12/13/16 Cholecalciferol (Vitamin D3) (Vitamin D)1,000 Unit Tablet1,000 Unit PO DAILY #1 BOTTLE Ref 0 05/10/15 Levothyroxine 75 Mcg [id number] Mcg PO DAILY Ref 0 12/21/14 History History of ENT Problems?: No HEENT History: Positive for:: Hearing Problem (hx of left ear surgery) Denies:: Abnormal Airway Difficult Intubation Dysphagia Denture Type: None Teeth Condition: Within Normal Limits Hx of Heart Problems?: No Cardiovascular History: Denies:: Chest Pain Congestive Heart Failure Hypertension Irregular Heartbeat Pacemaker Thrombophlebitis Hx of Respiratory Problem?: No Respiratory History: Denies:: Asthma Cough Emphysema Oxygen Administration Pneumonia Tuberculosis Use of C-PAP Machine Hx Neurologic Problems?: Yes Neurological History: Positive for:: Headaches (occasional) Denies:: CVA Dementia Multiple Sclerosis Parkinson's Disease Seizures Hx of GI Problems?: Yes Hx of Problems?: No HX of Peritoneal Dialysis: No Female Hx: Positive for:: Problems with Breasts? (right breast current admission problem) Denies:: Currently Endometriosis Pelvic Inflammatory Skin History: Denies:: History Skin Disorders? Pressure Ulcers Hx Musculoskeletal Problems?: Yes Musculoskeletal History: Positive for:: Back Injury (hx of two herniated discs ) Denies:: Fibromyalgia Joint Replacement Musculoskeletal Trauma Osteoarthritis Systemic Lupus Hx of Psycho/Social Problems?: No Psycho Social History: Positive for:: Hx Depression Denies:: Anxiety Hx Surgeries?: Yes (c section, migel, left breast ) Hx Any Other Health Problems?: Yes Other History: Positive for:: Cancer (right breast cancer current admission problem) Hospitalization Thyroid Disease Denies:: Endocrine Disease History Blood Transfusions: Denies:: Blood Transfusions Hx Diabetes: No Hx Alcohol Use: Yes (once in a while)Hx Substance Use: No Smoking Status: Never Smoker Have You Smoked inLast 12 mo: No Stop/Bang Treated for Sleep Apnea?: No Do You Have a CPAP Machine?: No S-Snoring: Do You Snore Loudly: No T-Tired: feel tired, fatigued: No O-Obsered: Observed not breath: No P-Blood Pressure: treated: No B- Body Mass Index > 35 kg/m2: No A- Age over 50: No N- Neck Large Circumference: No G- Gender Male: No LISSETTE Total Score: 0 LISSETTE Risk Assessment: Low Risk, <3 Yes LISSETTE Category 4 OutPt Procedure: Yes Risk Assessment Category Category 1A: Patient has history of documented sleep apnea, and HAS NOT received any narcotic, sedative or anesthesia administration during this stay. Category 1B: Patient has history of documented sleep apnea, and HAS received any narcotic , sedative or anesthesia administration during this stay Category 2: Patient has SUSPECTED Obstructive Sleep Apnea, and HAS received any narcotic , sedative or anesthesia administration during this stay. Category 3: Patient has SUSPECTED Obstructive Sleep Apnea and HAS NOT received narcotic, sedative or anesthesia administration during this stay. Category 4: Outpatient in Procedural Areas with known sleep apnea or who screen positive for High Risk via the STOP/BANG questionnaire. Exam Exam General Appearance: Alert, Oriented X3, Cooperative, No Acute Distress HEENT/AIRWAY: MP 2 Lungs: Clear to Auscultation, Normal Air Movement Heart: Exam Unremarkable, Regular Rate/Rhythm, No Murmurs/Rubs/Gallops Plan Impression Patient chart reviewed, patient interviewed and anesthestic plan with risks, benefits, and alternatives discussed, and informed consent obtained. ASA Physical Status: ASA2 Mod Systemic Disease Anesthetic Plan: GA Bene/Risks/Altern/Consents: Yes HP Complete Prior to Induction: Yes Roly Cooney MD Jan 01, 2017 09:50
[2017-01-01] MEDS: Lactated Ringer's 1,000 ML IV SCH ×2 (12:52→13:10)
--- NOTE | 2017-01-01 15:37 | DRSVH ---
SPECIMEN RIGHT BREAST: 01/01/2017 CLINICAL: Breast specimen. Correlation is made to exams dated: 01/01/2017 localization - Breast [facility], 12/19/2016 breast [facility], 11/22/2016 ultrasound biopsy, and 11/22/2016 mammogram - Breast [facility] . A surgical biopsy specimen was imaged for the previous biopsy site located in the right breast at 12 o'clock middle depth. This was described on the previous mammography report. IMPRESSION: SPECIMEN The imaged specimen includes a biopsy clip and the distal portion of the localization wire. This exam was interpreted at Station ID: [id number]. Christie hawkins/melina:01/01/2017 15:23:30 Additional referring physicians: MARII DUMONT DAVID A. KANDA
--- NOTE | 2017-01-01 15:42 | DRSVH ---
PROCEDURE: NM SENTINEL NODE INJECTION ONLY, RIGHT BREAST RADIOPHARMACEUTICAL: 0.5 mCi Millipore filtered Tc-99m sulfur colloid. INDICATIONS: pre op in day surgery PROCEDURE: The indications, alternatives, benefits, risks, and complications of the procedure were explained to the patient. Written informed consent was obtained and placed in the chart. The area around the nip ple was prepped and draped in a sterile fashion. Tc-99m sulfur colloid was injected in the outer edg e of the areola in the right breast. No image was obtained. IMPRESSION: Administration of radiotracer into the right breast periareolar region for intra-operati ve sentinel lymph node localization. Dictated by: Eric Fitzpatrick M.D. on 01/01/2017 at 15:39 Approved by: Eric Fitzpatrick M.D. on 01/01/2017 at 15:40
--- NOTE | 2017-01-01 16:20 | PCM.DISURG ---
Surgical Discharge Instruction Date of Service Jan 01, 2017 Dates of Hospitalization Date of Hospital Admission Providers Admitting Physician: Primary Care Physician: Mansoor Al MD Attending Physician: Estuardo Mclaughlin MD Discharge Diagnosis Discharge Diagnosis Right breast cancer Post Operative diagnosis Right breast cancer Diet Discharge Diet: No restrictions Activity Discharge Activity-General: No restrictions Dressing and Incisional Care Dressing Care: Other (Dermabond dressing will flake off in 2-3 weeks.) Hygiene: May shower Follow Up Plan Mid-level Provider (F9): Nabor Kern PA-C Follow-up appointment: Weeks (2-3) Enid Ward MD Jan 01, 2017 16:20
--- NOTE | 2017-01-01 16:23 | PCM.SURGPO ---
Immediate Operative Note Date of Surgery: Jan 01, 2017 Pre Operative Diagnosis Right breast cancer Post Operative Diagnosis Right breast cancer Procedure Right breast wire localized partial mastectomy with sentinel lymph node biopsy Surgeon and Ware Carrier Surgeon: Estuardo Mclaughlin MD Assistants: Enid Ward MD and Frank Ayers DO Findings Right breast mass and right sentinel lymph nodes x2 Complications There were no periprocedural complications identified. Surgical Specimen Removed: Yes Specimen sent to Pathology: Yes Anesthetic Administered: GA Grafts, Implants: None Output, Estimated Blood Loss: 5 Blood Admin during surgery: No Enid Wrad MD Jan 01, 2017 16:23
[2017-01-01] MEDS: fentaNYL-PF 50 mCg/mL 2 mL Inj IVPUSH PRN ×2 (16:43→16:56)
--- NOTE | 2017-01-01 19:35 | OP ---
[address] [address] OPERATIVE REPORT PATIENT: ANATOLYI ANTON : 1970 MR#: [id number] ADMIT: 01/01/2017 JOB ID: [id number] DATE OF SURGERY: 01/01/2017 PREOPERATIVE DIAGNOSIS(ES): Right breast cancer. POSTOPERATIVE DIAGNOSIS(ES): Right breast cancer. PROCEDURE PERFORMED: Wire localized right partial mastectomy and right axillary sentinel lymph node biopsy. COMPLICATIONS: None. CONDITION OF THE PATIENT: Stable. SURGEON: Estuardo Mclaughlin MD. TAX MANAGER: Enid Ward MD, and Frank Ayers DO. INDICATIONS: The patient is a 46-year-old lady, who felt a lump in her right breast and got concerned, who underwent a diagnostic mammogram which showed a 1.1 cm architectural distortion. She then had ultrasound-guided biopsy which showed invasive ductal carcinoma, ER positive, NE positive, HER-2 negative. Breast MRI showed the known 1.4 cm malignancy but no other additional lesions. After discussing the risks, benefits, and alternatives, she was brought to the operating room today for wire localized right partial mastectomy with sentinel lymph node biopsy. PROCEDURE DETAILS: She had wire localization earlier in [facility] and then had radiocolloid injected in the Day Surgery area. She was brought to the operating room. The right breast was prepped and draped in the usual sterile fashion. Surgical time-out was undertaken using safety checklist, and all were in agreement. We began by making a circumferential incision along the wire and raising skin flaps in all directions and following the wire posteriorly. After getting close to the chest wall, we did notice that when were getting posteriorly along the specimen that the tip of the wire was actually a little further beyond. I actually took an additional disc of tissue before completely transecting the specimen and sent it along with the specimen while marking, orienting it with a short stitch superior, long stitch lateral, and double stitch posterior. When we got the specimen radiograph, the specimen appeared to be well centered on the wire and the clip and so we directed our attention to the sentinel lymph node biopsy. I made an incision in the axilla where we had the maximum activity on the gamma probe and we isolated the 1st axillary sentinel lymph node with the activity of close to 200. We dissected around it sharply and then got an ex vivo count of 160. When we examined the background at that time, we still had a background of close to 50, so we isolated the 2nd axillary lymph node, which had activity, and again dissected it sharply around with combination of clips and electrocautery and got an ex vivo count of 55 on that. At that time, the background count was close to zero and we again ensured hemostasis, and closed both the incisions with 3-0 Vicryl followed by 4-0 Monocryl. Dermabond was applied as a dressing. Patient was recovered from anesthesia and was taken to the recovery room in stable condition.
--- NOTE | 2017-01-02 08:49 | PCM.ANEP1 ---
Post Anesthesia PACU Phase 1 Assessment Anesthetic Administered: GA Level of Alertness: Awake, talking LANE's with Equal Strength: Yes Pain: No Nausea or Vomiting: No CV Function & Hydration Stable: Yes Airway Device: Oralpharangeal Airway Oxygen Delivery: Simple Mask Lungs: Clear to Auscultation, Normal Air Movement PACU Phase 2 Assessment Complications: No Follow up Care: No Patient Instructions Provided: N/A Roly Cooney MD Jan 02, 2017 08:49
--- NOTE | 2017-01-04 13:43 | PATH ---
SURGICAL PATHOLOGY Attending Physician:Estuardo Mclaughlin MD CASE STATUS: Signed Out PATIENT NAME: ANATOLIY ANTON PID: [id number] : 1970 DATE COLLECTED:01/01/2017 00:00 SPECIMEN: 1: Breast, Simple Mastectomy (lymph nodes submitted separately) 2: Swink Lymph Node 3: Swink Lymph Node CLINICAL HISTORY: RIGHT BREAST CANCER 1). RIGHT UPPER BREAST, SHORT-SUPERIOR, LONG-LATERAL, DOUBLE-POSTERIOR 2). RIGHT AXILLARY SENTINEL LYMPH NODE #1 3). RIGHT AXILLARY SENTIENL LYMPH NODE #2 FINAL DIAGNOSIS: 1. Right Upper Breast, Excision with image-guided localization: Invasive mammary carcinoma; see cancer case summary. 2-3. Right Axillary Swink Lymph Node #1, #2, Excisional Biopsies: Two lymph nodes negative for carcinoma. CAP CANCER CASE SUMMARY PROCEDURE: Excision with image-guided localization. LYMPH NODE SAMPLING: Swink lymph nodes. SPECIMEN LATERALITY: Right. TUMOR SITE: Upper breast. TUMOR SIZE: 9 mm; See Comment. HISTOLOGIC TYPE: Ductal, not otherwise specified. HISTOLOGIC GRADE: MARY HISTOLOGIC SCORE Glandular/Tubular differentiation: Score 3. Nuclear Pleomorphism: Score 2. Mitotic Rate: Score 2. Overall Grade: Grade 2. TUMOR FOCALITY: Single focus of invasive carcinoma. DUCTAL CARCINOMA IN SITU: No DCIS is present. MARGINS INVASIVE CARCINOMA: Margins uninvolved by invasive carcinoma. Distance from closest margin: 3 mm, medial. DUCTAL CARCINOMA IN SITU: No DCIS present. LYMPH NODES Total number of lymph nodes examined: 2. Number of sentinel lymph nodes examined: 2. Lymph Nodes Involved: 0. Method of Evaluation of Swink Lymph Nodes: H&E, three levels. LYMPH-VASCULAR INVASION: Not identified. PATHOLOGIC STAGING: AJCC, 7th ed., 2010 PRIMARY TUMOR: pT1b REGIONAL LYMPH NODES: pN0 (sn) ANCILLARY STUDIES: Biomarkers Performed Previously on Case: [id number] ([facility], [place], [place]) Estrogen Receptor (ER) Status: Positive, moderate intensity, more than 90% of tumor cells. Progesterone Receptor (PgR) Status: Positive, strong intensity, more than 90% of tumor cells. HER2 (by immunohistochemistry): Negative (1+). ICD10: C50.9 NOTE: Carcinoma is only present in slices 8 and 9 of the main specimen, having a maximum span of 9 mm on the glass slide. The three slices medial to this have extensive involvement by fat necrosis and biopsy site changes accounting for the discrepancy between the gross and microscopic size of the tumor. GROSS DESCRIPTION: The specimens are received in formalin, labeled with the patient's name, and sublabeled as the following: (1) right upper breast; (2) right axillary sentinel lymph node #1; (3) right axillary sentinel lymph node #2. (1) The specimen consists of a piece of breast tissue (5.2 cm AP, 4.5 cm SI, 3.0 cm ML) with no overlying skin. The specimen is oriented with 3 black sutures (short-superior, long-lateral, double-posterior). A localization wire enters the central anterior aspect and ends in the center of the tissue. The specimen is serially sectioned AP into 13 slices with the anterior and posterior resection margins as slices #1 and #13 respectively. The breast tissue is fatty and contains a ortiz-white solid firm irregular mass (2.5 x 2.3 x 1.7 cm) within slices #7-#12. The mass is 2.4 cm from the anterior, 0.5 cm from the posterior, 1.5 cm from the superior, less than 0.1 cm from the inferior, less than 0.1 cm from the medial, and 0.8 cm from the lateral resection margins. No other nodules, masses, or lesions are identified. Ink code: purple-anterior; yellow-posterior; black-superior; orange-inferior; green-medial; blue-lateral. Section code: (1A) anterior resection margin, perpendicularly sectioned, entirely submitted; (1B) slice #5, entirely submitted; (1C) slice #6, tissue adjacent to mass, entirely submitted; (1D) slice #7, entirely submitted; (1E) slice #8, bisected SI, inferior half submitted; (1F) slice #9, bisected SI, inferior half submitted; (1G-1H) slice #10 bisected and submitted SI, entirely submitted; (1I-1J) slice #11 bisected and submitted ML, entirely submitted; (1K-1N) slice #12, quartered, entirely submitted; (1O-1R) posterior resection margin, perpendicularly sectioned, entirely submitted. (2) The specimen consists of a lymph node (2.2 x 1.8 x 0.8 cm) and a separate piece of adipose tissue (2.0 x 1.5 x 0.2 cm) containing a possible lymph node (0.2 x 0.1 x 0.1 cm). Section code: (2A-2B) one lymph node, serially sectioned; (2C) remaining adipose tissue with possible intact lymph node. Specimen entirely submitted. (3) The specimen consists of a lymph node (2.4 x 2.0 x 0.8 cm) with attached adipose tissue (2.5 x 2.2 x 0.1 cm). Section code: (3A-3B) one lymph node, serially sectioned; (3C) remaining adipose tissue. Specimen entirely submitted. Note: Approximate total fixation time in formalin for all specimens-28 hours and 30 minutes calculated using a collection date of January 01, 2017 which times in fixative of 4310-8315. 01/02/17 JM MICRO DESCRIPTION: Part 1: Sections are of breast parenchyma infiltrated by carcinoma with a nested growth pattern. Carcinoma is clearly present in slices 8 and 9 of the specimen. In the few slices of the specimen posterior to the carcinoma (slices 10-12), there are extensive biopsy site changes and fat necrosis evidenced by numerous foreign body-type multinucleated giant cells and hemosiderin-laden macrophages. To confirm the histologic impression of histiocytes and argue against involvement by adenocarcinoma, an MICHEAL stain is performed on slice 10 (block 1H). The cells of interest are negative for MICHEAL protein expression excluding the possibility of carcinoma and supporting the histologic impression of histiocytes. Background ductal and lobular stroma is highlighted, and a control stain shows appropriate reactivity. * This test was developed and its performance characteristics determined by [facility]. It has not been cleared or approved by the U.S. Food and Drug Administration. The FDA has determined that such clearance or approval is not necessary. This test is used for clinical purposes. It should not be regarded as investigational or for research. ICD-9 CODES: CPT CODES: 1: 33864, 67078 2: 51990 3: 77703 Electronically Signed Out Jeffery Manzanares MD, Ph.D. [facility] [address], [place] [address] Technical component performed at [facility], [address], [place], [address]
== END | disposition home or self-care (01) ==
LOC: SAS 08:52
PROVIDERS: ATTEND Student in an Organized Health Care Education/Training Program
DX: C50.911 Malignant neoplasm of unspecified site of right female breast (principal); E03.9 Hypothyroidism, unspecified; F32.9 Major depressive disorder, single episode, unspecified; Z17.0 Estrogen receptor positive status [ER+]
CPT/HCPCS: 19301; 38525; 38792; 76098; A9541; J0690; J1100; J1170; J2405; J2704; J2765; J3010; J7120